=== PATIENT | female | born 1960 | race Caucasian/White ===

== ENCOUNTER 2016-10-03 13:00 | Outpatient (CLI) | payer MEDICARE ==
[2015-09-23 06:10] VITALS: BMI 34.0
[2016-10-03 11:39] LABS: HEMATOCRIT 37.9 % (36.0-48.0); HEMOGLOBIN 12.7 g/dL (12-16); MCH 29.5 pg (26.0-34.0); MCHC 33.5 g/dL (31.0-37.0); MCV 88.1 fL (80.0-100.0); MEAN PLATELET VOLUME 9.4 fL (7.4-10.4); RBC 4.3 10x6/uL (4.00-5.40); RDW 13.7 % (11.5-14.5); WBC 5.8 10x3/uL (4.8-10.8)
[2016-10-03 11:47] LABS: CALC OSMOLALITY 282 mosm/kg (275-300); CALCIUM 9.6 mg/dL (8.5-10.1); CARBON DIOXIDE 27.5 mmol/L (21.0-32.0); CHLORIDE - SERUM 104 mmol/L (98-107); CREATININE - SERUM 0.7 mg/dL (0.6-1.3); GLUCOSE 121 mg/dL (74-106); POTASSIUM - SERUM 3.7 mmol/L (3.5-5.1); SODIUM 141 mmol/L (136-145); UREA NITROGEN 15 mg/dL (7-18); eGFR NON AFRICAN AMERICAN > 90 mL/min (90-120)
[~2016-10-03 13:00] MED LIST: ASPIRIN EC81 MG PO; BENEFIBER1 PKT NG; BUMEX 1 MG TAB1 MG PO; DEMEROL50 MG PO; MED FOR RESTLESS LEG; MICRO-K10 MEQ PO; MIRAPEX0.5 MG; NEXIUM40 MG PO; OXYBUTYNIN CHLOR5 MG PO; PLAVIX75 MG PO; PRAVACHOL20 MG PO; TAZTIA XT360 MG PO; TIAZAC; VENTOLIN HFA18 GM INH; VITAMIN D50000 UNIT; ZOLOFT50 MG PO
== END 2016-10-03 23:59 | disposition home or self-care (01) ==
LOC: D.PAN 13:00 → D.OPS 10-04 11:45 → D.PAN 10-04 11:45 → EDSTATUS 10-04 11:45 → D.OPS 10-04 12:00
PROVIDERS: Anesthesiology
DX: M65.319 Trigger thumb, unspecified thumb (principal); Z01.810 Encounter for preprocedural cardiovascular examination; Z01.811 Encounter for preprocedural respiratory examination; Z01.812 Encounter for preprocedural laboratory examination; I10 Essential (primary) hypertension

== ENCOUNTER 2016-10-25 05:36 | Day surgery (SDC) | payer MEDICARE ==
[2016-10-23 10:05] LABS: BASOPHILS 0.3 % (0-2); EOSINOPHILS 2.8 % (0-7); HEMATOCRIT 38.1 % (36.0-48.0); HEMOGLOBIN 12.8 g/dL (12-16); IMMATURE GRANULOCYTES 0.3 % (0-5); LYMPHOCYTES 37.7 % (15-50); MCHC 33.6 g/dL (31.0-37.0); MCV 89.2 fL (80.0-100.0); MEAN PLATELET VOLUME 9.2 fL (7.4-10.4); MONOCYTES 8.1 % (2-11); NEUTROPHILS 50.8 % (40-80); PLATELET COUNT 175 10x3/uL (130-400); RBC 4.27 10x6/uL (4.00-5.40); RDW 13.4 % (11.5-14.5); WBC 6.4 10x3/uL (4.8-10.8)
[2016-10-23 10:26] LABS: ANION GAP 14.5 mmol/L (8-16); CALCIUM 9.1 mg/dL (8.5-10.1); CARBON DIOXIDE 26.5 mmol/L (21.0-32.0); CREATININE - SERUM 0.9 mg/dL (0.6-1.3)
[~2016-10-25] VITALS: Ht 154.9 cm; Wt 84.8 kg
[~2016-10-25 05:36] MED LIST changes: +VITAMIN D250000 UNIT PO; -VITAMIN D50000 UNIT
[2016-10-25 06:44] VITALS: BP 123/48; Ht 154.9 cm; Wt 84.8 kg
[2016-10-25] MEDS ORDERED: HYDROCODONE-APA1 TAB PO (08:42)
--- NOTE | 2016-10-25 17:02 | NUR ---
1015--IV DC'D, PT UP TO DRESS. DELGADO PURVIS 1025--DISCHARGE INSTRUCTIONS GIVEN, PT VERBALIZES UNDERSTANDING. PT OFF UNIT VIA WC. DELGADO PURVIS
== END 2016-10-25 10:25 | disposition home or self-care (01) ==
LOC: D.OPS 05:36 → D.PAN 08:55 → D.OPS 08:55 → D.PAN 09:00 → D.OPS 10:25
PROVIDERS: Anesthesiology
DX: M65.312 Trigger thumb, left thumb (principal); J44.9 Chronic obstructive pulmonary disease, unspecified; I10 Essential (primary) hypertension; E11.9 Type 2 diabetes mellitus without complications; K44.9 Diaphragmatic hernia without obstruction or gangrene; K21.9 Gastro-esophageal reflux disease without esophagitis; Z01.812 Encounter for preprocedural laboratory examination

== ENCOUNTER → 2016-11-13 10:39 | Outpatient (CLI) | payer MEDICARE ==
[2016-10-25 06:44] VITALS: BMI 35.4
[~2016-11-13 10:39] MED LIST changes: +HYDROCODONE-APA1 TAB PO
== END | disposition home or self-care (01) ==
LOC: D.MRI 10:39
DX: M75.41 Impingement syndrome of right shoulder (principal)

== ENCOUNTER 2017-01-10 06:50 | Day surgery (SDC) | payer MEDICARE ==
[2017-01-09 13:46] LABS: HEMATOCRIT 36.4 % (36.0-48.0); HEMOGLOBIN 12.2 g/dL (12-16); MCH 30.2 pg (26.0-34.0); MCHC 33.5 g/dL (31.0-37.0); MCV 90.1 fL (80.0-100.0); MEAN PLATELET VOLUME 9.3 fL (7.4-10.4); RBC 4.04 10x6/uL (4.00-5.40); RDW 13.3 % (11.5-14.5); WBC 6.2 10x3/uL (4.8-10.8)
[~2017-01-10 06:50] MED LIST changes: +ATIVAN0.5 MG PO; +LISINOPRIL5 MG PO
[2017-01-10 09:26] VITALS: BP 113/72; BMI 35.0
[2017-01-10] MEDS ORDERED: MEPERIDINE HCL50 MG PO (13:46)
--- NOTE | 2017-01-10 16:33 | NUR ---
1445 IV DC WITH CATHER TIP INTACT SHOULDER WITH AMT BLEEDING NOYED ICE PACK TO SHOULDER
--- NOTE | 2017-01-11 10:15 | OP ---
PATIENT NAME: EMPERATRIZ ALANIZ MEDICAL RECORD: [id number] :58 LOCATION:[facility] ADMISSION DATE: SURGEON: J CARLOS MAGALLANES, JUDI DOLAN DATE OF OPERATION: 01/10/2017 PREOPERATIVE DIAGNOSES: Recurrent rotator cuff tear of the right shoulder with biceps tendinitis and labral tearing, recurrent acromioclavicular arthritis, impingement. POSTOPERATIVE DIAGNOSES: Recurrent rotator cuff tear of the right shoulder with biceps tendinitis and labral tearing, recurrent acromioclavicular arthritis, impingement. PROCEDURES: 1. Arthroscopic rotator cuff repair. 2. Arthroscopic distal clavicle excision done under separate incision - 1 cm. 3. Arthroscopic biceps tenotomy. 4. Arthroscopic subacromial decompression, acromioplasty and bursectomy. SURGEON: Judi Whitman MD ANESTHESIA: General. INTRAOPERATIVE COMPLICATIONS: None. SUMMARY OF PATHOLOGIC FINDINGS: The patient had a full thickness tear on the acromial side of the rotator cuff that did join the articular side and it was from recurrent impingement, lateral based impingement, as it does appear the anterior aspect of the acromion was taken down adequately; however, the lateral impingement persist as did acromioclavicular arthritis. Inside the patient's shoulder, she had a bicipital labral lesion at the root of the biceps extending into the biceps with severe biceps tendinitis. OPERATIVE SUMMARY IN DETAIL: After obtaining the appropriate preoperative orthopedic consents as well as anesthetic consultation, evaluation and clearance, the patient was brought to the operating room and placed on the operating table in supine position. After general laryngeal mask was administered, the patient was placed in left lateral decubitus position. All pressure points were well padded to include down leg peroneal pad as well as axillary roll. The patient was held firmly to the operating table using the vacuum pack suction system. Right upper extremity and shoulder were then prepped and draped in routine sterile fashion, held in the Arthrex traction boom at 30 degrees of forward flexion, 30 degrees of abduction with 10 pounds of traction laterally. Arthroscopy was established in the glenohumeral joint from a posterior portal. Anterior portal was established in the anterior safe interval. Diagnostic arthroscopy revealed the above findings. A transarthroscopic rotator cuff tear portal was created for debridement of torn portions of the rotator cuff fibers on the articular side. At this point, a [place] tissue ablation system was utilized to incise the biceps tendon at the bicipital labral junction. Further labral debridement was carried out gently and then attention was turned to the subacromial space. While at the subacromial space, the larger aspect of the rotator cuff tear was noted. [place] tissue ablation system was used to denude the undersurface of the acromion of all soft tissue elements. A 5-0 barrel bur was used to perform acromioplasty at the level of acromioclavicular joint. This was brought up higher than in the OPERATIVE REPORT [id number] EMPERATRIZ ALANIZ index procedure. The AC joint was found to have inferior osteophytes. The AC joint was then taken down with the 5.0 barrel bur under direct arthroscopic visualization for 1 cm. Having completed this, attention was returned to the rotator cuff tear. Further decortication was carried out on the lateral aspect of the supraspinatus tendinous footprint. A single inverted mattress style FiberTape was placed, it was then anchored laterally with a single 5.5 SwiveLock from Arthrex. Having completed this, arthroscopy portals were closed in routine interrupted fashion using 4-0 Prolene. Sterile dressings were applied. The patient was awakened and taken to recovery room in stable condition. All final needle and sponge counts were correct. TRANSINT:[id number] Voice Confirmation ID: [id number] DOCUMENT ID: [id number] J CARLOS MAGALLANES, JUDI DOLAN at 1015 CC: [id number] DICTATION DATE: 01/10/17 1344 ORCHESTRA LEADER: 01/10/17 1900 [facility] 01/10/17 [facility] [address] [place] [address]
== END 2017-01-10 15:05 | disposition home or self-care (01) ==
LOC: D.OPS 06:50 → D.PAN 12:00 → D.OPS 12:00 → D.PAN 12:30 → D.OPS 15:05 → D.PAN 17:45
PROVIDERS: Anesthesiology
DX: M75.101 Unspecified rotator cuff tear or rupture of right shoulder, not specified as traumatic (principal); M75.21 Bicipital tendinitis, right shoulder; M19.011 Primary osteoarthritis, right shoulder; M25.811 Other specified joint disorders, right shoulder; I10 Essential (primary) hypertension; I50.9 Heart failure, unspecified; K21.9 Gastro-esophageal reflux disease without esophagitis; J44.9 Chronic obstructive pulmonary disease, unspecified; Z01.812 Encounter for preprocedural laboratory examination

== ENCOUNTER → 2017-10-01 08:12 | Outpatient (CLI) | payer MEDICARE ==
[~2017-10-01 08:12] MED LIST changes: +MEPERIDINE HCL50 MG PO
== END | disposition home or self-care (01) ==
LOC: D.SP 08:12 → D.RAD 09:00
DX: M25.552 Pain in left hip (principal); Z01.812 Encounter for preprocedural laboratory examination

== ENCOUNTER → 2017-11-05 09:16 | Outpatient (CLI) | payer MEDICARE | END | disposition home or self-care (01) | LOC: D.MRI 09:16 | DX: M54.16 Radiculopathy, lumbar region (principal) ==

== ENCOUNTER → 2018-03-28 12:44 | Outpatient (CLI) | payer MEDICARE | END | disposition home or self-care (01) | LOC: D.MRI 12:44 | DX: M25.511 Pain in right shoulder (principal) ==

== ENCOUNTER → 2018-05-02 08:40 | Outpatient (CLI) | payer MEDICARE | END | disposition home or self-care (01) | LOC: D.RAD 04-18 10:00 → D.CT 04-18 15:00 → D.RAD 04-28 13:00 → D.CT 04-28 14:00 → D.RAD 08:40 | DX: M54.12 Radiculopathy, cervical region (principal) ==

== ENCOUNTER 2019-06-15 09:30 | Day surgery (SDC) | payer MEDICARE ==
[2019-06-12 11:18] LABS: HEMATOCRIT 37.9 % (36.0-48.0); HEMOGLOBIN 12.9 g/dL (12-16); MCH 30.2 pg (26.0-34.0); MCV 88.8 fL (80.0-100.0); MEAN PLATELET VOLUME 8.9 fL (7.4-10.4); RBC 4.27 10x6/uL (4.00-5.40); RDW 13.5 % (11.5-14.5); WBC 6.3 10x3/uL (4.8-10.8)
[2019-06-12 11:33] LABS: ANION GAP 15.5 mmol/L (8-16); CALCIUM 9.3 mg/dL (8.5-10.1); POTASSIUM - SERUM 3.5 mmol/L (3.5-5.1)
[~2019-06-15] VITALS: Ht 154.9 cm; Wt 88.9 kg
[2019-06-15 10:08] VITALS: BP 143/56; Ht 154.9 cm; Wt 88.9 kg
[2019-06-15] MEDS ORDERED: HYDROCODON-ACE1 EA10 PO (11:26)
--- NOTE | 2019-06-15 13:01 | NUR ---
1255 IV REMOVED AND PRESSURE HELD INSTRUCTIONS GIVEN
--- NOTE | 2019-06-19 09:46 | OP ---
PATIENT NAME: EMPERATRIZ ALANIZ MEDICAL RECORD: [id number] :58 LOCATION:[facility] ADMISSION DATE: SURGEON: JUDI WHITMAN MD DATE OF OPERATION: 06/15/2019 PREOPERATIVE DIAGNOSES: 1. Trigger thumb of the right hand. 2. Severe CMC arthritis of the right hand. POSTOPERATIVE DIAGNOSES: 1. Trigger thumb of the right hand. 2. Severe CMC arthritis of the right hand. PROCEDURES: 1. Trigger thumb release of the right hand. 2. Injection of the CMC joint. SURGEON: Judi Whitman MD ANESTHESIA: General. INTRAOPERATIVE COMPLICATIONS: None. SUMMARY OF PATHOLOGIC FINDINGS: The patient had very tight A1 tere with some excoriation of the flexor mass; however, no full-thickness tearing was noted. The patient did have known CMC arthropathy. OPERATIVE SUMMARY IN DETAIL: After obtaining the appropriate preoperative orthopedic surgery consent as well as anesthetic consultation, evaluation and clearance, the patient was brought to the operating room and placed on the operating table in supine position. After adequate general laryngeal mask airway was administered, a tourniquet was placed about the proximal aspect of the right upper extremity. The right upper extremity was then prepped and draped in routine sterile fashion. The arm was elevated and exsanguinated and tourniquet was inflated to 250 mmHg. After appropriate timeout was taken and agreed upon by all, incision was made at the base of the thumb directly over the A1 tere. A1 tere was identified and then incised in its entirety. It was very thickened. After complete incision, tendon was inspected and found to have good overall excursion as well as only minimal attritional changes. Lastly, a mixture of 40 mg of Depo-Medrol and 2 cc of 0.25% Marcaine plain were injected into the patient's CMC joint while she was still under general anesthesia. Having completed that, sterile dressings were applied. The patient was awakened and taken to the recovery room in stable condition. All final needle and sponge counts were correct. TRANSINT:[id number] Voice Confirmation ID: [id number] DOCUMENT ID: [id number] OPERATIVE REPORT [id number] EMPERATRIZ ALANIZ MD, JUDI DOLAN at 0946 CC: [id number] DICTATION DATE: 06/19/19 0559 HOTEL RECEPTIONIST: 06/19/19 0834 [facility]P [facility]C 06/15/19 [facility] [address] [place] [address]
== END 2019-06-15 13:07 | disposition home or self-care (01) ==
LOC: D.OPS 09:30 → D.PAN 12:00 → D.OPS 12:00 → D.PAN 15:30 → D.OPS 16:05 → D.PAN 17:45 → D.OPS 17:45
PROVIDERS: Anesthesiology; ATTEND Orthopaedic Surgery
DX: M65.311 Trigger thumb, right thumb (principal); M13.841 Other specified arthritis, right hand

== ENCOUNTER → 2019-08-20 12:42 | Outpatient (CLI) | payer MEDICARE ==
[2019-06-15 10:08] VITALS: BMI 37.1
[~2019-08-20 12:42] MED LIST changes: +HYDROCODON-ACE1 EA10 PO
== END | disposition home or self-care (01) ==
LOC: D.MRI 12:42
PROVIDERS: ATTEND Clinical Nurse Specialist Family Health
DX: M54.16 Radiculopathy, lumbar region (principal)

== ENCOUNTER 2020-06-09 05:30 | Day surgery (SDC) | payer MEDICARE ==
[2020-06-06 11:06] LABS: BASOPHILS 0.8 % (0-2); EOSINOPHILS 2.6 % (0-7); HEMATOCRIT 39.5 % (36.0-48.0); HEMOGLOBIN 13.2 g/dL (12-16); IMMATURE GRANULOCYTES 0.3 % (0-5); LYMPHOCYTE ABS# 2.53 10x3/uL (1.18-3.74); LYMPHOCYTES 38.9 % (15-50); MCHC 33.4 g/dL (31.0-37.0); MCV 86.8 fL (80.0-100.0); MONOCYTES 7.4 % (2-11); NEUTROPHIL ABS# 3.26 10x3/uL (1.56-6.13); PLATELET COUNT 206 10x3/uL (130-400); RBC 4.55 10x6/uL (4.00-5.40); RDW 13.5 % (11.5-14.5); WBC 6.5 10x3/uL (4.8-10.8)
[2020-06-06 11:23] LABS: ANION GAP 12.9 mmol/L (8-16); CARBON DIOXIDE 25.9 mmol/L (21.0-32.0); CREATININE - SERUM 1.1 mg/dL (0.6-1.3); POTASSIUM - SERUM 3.8 mmol/L (3.5-5.1)
[~2020-06-09] VITALS: Ht 154.9 cm; Wt 92.5 kg
[~2020-06-09 05:30] MED LIST changes: +LISINOPRIL20 MG PO
[2020-06-09 06:49] VITALS: BP 153/78; Ht 154.9 cm; Wt 92.5 kg
--- NOTE | 2020-06-13 21:34 | OP ---
PATIENT NAME: EMPERATRIZ HAY MEDICAL RECORD: [id number] :58 LOCATION:[facility] ADMISSION DATE: SURGEON: JL FRASER MD DATE OF OPERATION: 06/09/2020 PREOPERATIVE DIAGNOSES: 1. Right carpal tunnel syndrome. 2. Right long finger trigger finger. POSTOPERATIVE DIAGNOSES: 1. Right carpal tunnel syndrome. 2. Right long finger trigger finger. PROCEDURE PERFORMED: 1. Right carpal tunnel release. 2. Right long finger trigger release. INDICATIONS FOR THE PROCEDURE: Ms. Hay is a 60-year-old female with history of pain and numbness in the right hand and triggering of the long finger. She has been dealing with this for some time now and has elected to proceed with surgery for right carpal tunnel release and long finger trigger release. Risks, benefits and alternatives of surgery were discussed with the patient and consent was obtained. DESCRIPTION OF THE PROCEDURE: The patient was met in the holding area where her identity and confirmation of procedure was performed. The right upper extremity was marked. She was taken to the operating room where she was placed supine on the operating table and anesthesia was administered. Tourniquet was applied to the right arm and the right arm was prepped and draped in a sterile fashion. The patient received preoperative antibiotics and a timeout was performed before initiating the case. On initiation of the case, we began with the carpal tunnel release. Incision was made over the palm in line with the fourth ray. I dissected down through the skin and subcutaneous tissue to the transverse carpal ligament. The ligament was then incised and a freer was inserted. We continued our release distally until the ligament was entirely released. We then turned and released proximally to complete our carpal tunnel release. This was performed under direct visualization. The carpal tunnel was noted to have extensive synovitis throughout the tissues. It did not appear to have any other abnormalities. We then moved to the long finger trigger release. An incision was made at the distal palmar crease over the A1 tere of the long finger. We incised through the skin and subcutaneous tissue and dissected down to the tendon sheath. The A1 tere was then incised. We continued our release proximal and distal until it was completely released and the tendon was free of any restrictions. The tendon was retrieved through the wound with the hemostat and appeared to move freely. The wounds were then irrigated thoroughly with saline. Tourniquet was let down and hemostasis was obtained. The incision sites were injected subcutaneously with 0.25% plain Marcaine. These were then closed with 4-0 Prolene suture. A sterile dressing was placed. The patient was turned back over to anesthesia where she was awakened and taken to the recovery room in stable condition. POSTOPERATIVE PLAN: The patient is going to return home with her family today. She needs to limit any strenuous activity with the right hand. We will see her back in clinic in 2 weeks. OPERATIVE REPORT [id number] EMPERATRIZ HAY COMPLICATIONS: None. ESTIMATED BLOOD LOSS: 5 mL. TRANSINT:[id number] Voice Confirmation ID: [id number] DOCUMENT ID: [id number] JL FRASER MD at 2134 CC: [id number] DICTATION DATE: 06/09/20 0834 APPLIED MATHEMATICIAN: 06/09/20 1138 [facility] 06/09/20 [address] [place] [address]
== END 2020-06-09 09:55 | disposition home or self-care (01) ==
LOC: D.OPS 05:30
PROVIDERS: Anesthesiology; ATTEND Orthopaedic Surgery
DX: G56.01 Carpal tunnel syndrome, right upper limb (principal); M65.331 Trigger finger, right middle finger; M79.641 Pain in right hand